=== PATIENT | male | born 1960 | race Caucasian/White ===

== ENCOUNTER 2018-09-27 19:23 | Observation (INO) ==
[2018-09-28] MEDS ORDERED: Potassium Chloride 10 MEQ ER Capsule PO ONE (07:17)
[2018-09-28 07:41] VITALS: BP 115/74; RESP 16; TEMP 97.9; O2SAT 97
[2018-09-28] MEDS ORDERED: Acetaminophen 500 MG Tablet PO PRN (07:58)
[2018-09-28] MEDS ORDERED: Aspirin 325 MG Tablet PO SCH (09:00)
--- NOTE | 2018-09-28 09:35 | P.HPCA ---
History of Present Illness Primary Care Physician: UNKNOWN Chief Complaint: Chest pain History of Present Illness: This is a 58-year-old male that presents to ED with complaint of intermittent discomfort in the center of his chest he describes as a soreness. States it actually is just a little left of the center. Last anywhere from 5 minutes to an hour. Denies associated shortness of breath, nausea, or diaphoresis. States that has been random. Was curious to see if he could be worsened with activity so he went for a bicycle ride yesterday and it did not worsen his symptoms. had a similar episode in approximately March in [facility] and had a treadmill that he states was okay. He also had another episode a little more than a year ago but also had a normal treadmill stress test. he drove here from [place] beginning of August and will be done over 3 months. Denies swelling in his legs. Denies calf pain. History of hypertension, hyperlipidemia, hypothyroidism. Denies diabetes and known CAD. Denies family history of CAD. He is a lifetime non-smoker. Has occasional alcohol. Denies illicit drug use. - Diagnosis (1) Chest pain (2) Hypertension (3) Hyperlipidemia Review of Systems General: Patient denies fevers, chills. HEENT: Patient denies headache, sore throat, difficulty swallowing. Cardiovascular: Has the chest discomfort as mentioned above. Denies sensation of heart beating rapidly or irregularly. No syncope. Respiratory: Denies shortness of breath or inspirational chest discomfort. Denies coughing wheezing or hemoptysis. GI: Patient denies nausea, vomiting, diarrhea, abdominal pain, bloody stools. Musculoskeletal: Patient denies joint pain or edema. Denies calf pain or edema. Neurovascular: Patient denies numbness, tingling, weakness in extremities. Denies headache. Endocrine: Denies polyuria and polydipsia. Hematologic: Denies easy bruising. Skin: Denies rash or itching. PMFSH - History History Provided By: Patient - Medical History Medical History: Medical History (Last Updated 09/27/18 @ 19:38 by Heather Burk RN) Hypercholesterolemia Hypertension Thyroid disease - Surgical History Surgical History: Surgical History (Last Updated 09/27/18 @ 19:38 by Heather Burk RN) Hx of hernia repair Hx of rotator cuff surgery - Tobacco History Smoking Status: Never smoker - Alcohol History How Often Do You Have a Drink Containing Alcohol: Monthly or less - Substance Use History Substance History: No History of Abuse Medications and Allergies Active Medications: Active Medications Acetaminophen (Tylenol) 500 mg PO Q6H PRN PRN Reason: pain scale 1-5 Hydrocodone Bitart/Acetaminophen (Rogers 7.5/325) 1 tab PO Q6H PRN PRN Reason: pain scale 6-10 Aspirin (Aspirin) 325 mg PO DAILY IKER Last Admin: 09/28/18 08:41 Dose: 325 mg Clonidine HCl (Catapres) 0.1 mg PO Q6H PRN PRN Reason: SBP >165 OR DBP > 110 Allergies Allergy/AdvReac Type Severity Reaction Status Date / Time No Known Allergies Allergy Verified 09/27/18 19:33 Home Medications Medication Instructions Recorded Confirmed Type hydrochlorothiazide 12.5 mg PO DAILY 09/27/18 09/27/18 History levothyroxine mg PO DAILY 09/27/18 History lisinopril 5 mg PO DAILY 09/27/18 09/27/18 History rosuvastatin [Crestor] mg PO DAILY 09/27/18 History Exam Vital signs: Vital Signs 09/28/18 07:39 Temperature 97.9 F Pulse Rate 61 Respiratory Rate 16 Blood Pressure 115/74 Pulse Oximetry 97 Narrative: GENERAL: This is a well-nourished, well-developed patient, in no apparent distress. Patient speaks in clear complete sentences. Patient is pleasant. HEENT: Head is atraumatic and normocephalic. Neck is supple without lymphadenopathy and trachea is midline. No JVD or carotid bruits. CARDIOVASCULAR: Regular rate and rhythm without murmurs, gallops, or rubs. RESPIRATORY: Clear to auscultation. Breath sounds equal bilaterally. No wheezes , rales, or rhonchi. Chest wall is nontender. No use of accessory muscles. GASTROINTESTINAL: Abdomen is nontender, nondistended. Abdomen soft. No obvious pulsatile mass or bruit. No CVA tenderness. Strong femoral pulses bilaterally. Normal bowel sounds in all quadrants. MUSCULOSKELETAL: Patient is moving upper and lower extremities freely. No calf tenderness or edema, no Homans sign. Strong pulses in upper and lower extremities. NEUROLOGICAL: Patient is alert and oriented. Cranial nerves 2-12 are grossly intact. No focal deficits and speech is clear. SKIN: No rash and turgor is normal. EKG interpretations - EKG EKG shows: sinus rhythm (Sinus rhythm with right bundle branch block. No significant ST segment depressions or elevations.) Caprini VTE Risk Assessment Caprini VTE Risk Assessment: No/Low Risk (score <= 1) Caprini Risk Assessment Model: Point Value = 1 Point Value = 2 Point Value = 3 Point Value = 5 Age 41-60 Minor surgery BMI > 25 kg/m2 Swollen legs Varicose veins or History of unexplained or recurrent spontaneous Oral contraceptives or hormone replacement Sepsis (< 1 month) Serious lung disease, including pneumonia (< 1 month) Abnormal pulmonary function Acute myocardial infarction Congestive heart failure (< 1 month) History of inflammatory bowel disease Medical patient at bed rest Age 61-74 Arthroscopic surgery Major open surgery (> 45 min) Laparoscopic surgery (> 45 min) Malignancy Confined to bed (> 72 hours) Immobilizing plaster cast Central venous access Age >= 75 History of VTE Family history of VTE Factor V Leiden Prothrombin [id number] Lupus anticoagulant Anticardiolipin antibodies Elevated serum homocysteine Heparin-induced thrombocytopenia Other congenital or acquired thrombophilia Stroke (< 1 month) Elective arthroplasty Hip, pelvis, or leg fracture Acute spinal cord injury (< 1 month) Prophylaxis Regimen: Total Risk Factor Score Risk Level Prophylaxis Regimen 0-1 Low Early ambulation 2 Moderate Order ONE of the following: *Sequential Compression Device (SCD) *Heparin 5000 units SQ BID 3-4 Higher Order ONE of the following medications: *Heparin 5000 units SQ TID *Enoxaparin/Lovenox 40 mg SQ daily (WT < 150 kg, CrCl > 30 mL/min) *Enoxaparin/Lovenox 30 mg SQ daily (WT < 150 kg, CrCl > 10-29 mL/min) *Enoxaparin/Lovenox 30 mg SQ BID (WT < 150 kg, CrCl > 30 mL/min) AND/OR *Sequential Compression Device (SCD) 5 or more Highest Order ONE of the following medications: *Heparin 5000 units SQ TID (Preferred with Epidurals) *Enoxaparin/Lovenox 40 mg SQ daily (WT < 150 kg, CrCl > 30 mL/min) *Enoxaparin/Lovenox 30 mg SQ daily (WT < 150 kg, CrCl > 10-29 mL/min) *Enoxaparin/Lovenox 30 mg SQ BID (WT < 150 kg, CrCl > 30 mL/min) AND *Sequential Compression Device (SCD) Assessment and Plan - Assessment (1) Chest pain Code(s): R07.9 - Chest pain, unspecified Status: Acute (2) Hypertension Code(s): I10 - Essential (primary) hypertension Status: Acute (3) Hyperlipidemia Code(s): E78.5 - Hyperlipidemia, unspecified Status: Acute - Plan * Chest pain: Patient has had serial cardiac enzymes and EKGs for ruling out purposes. He will be seen by Dr. Awan of cardiology in the chest pain center. He will have a nuclear ETT, he will be discharged home if the stress test is nonischemic with instructions to follow-up with PCP and return to ED for interval issues. Radiologist also looked at the CT thoracic and abdominal aorta and main addendum, no evidence of pulmonary embolism. * Hypertension: Continue medication. * Hyperlipidemia: Continue medication. Patient is stable at this time. He is agreeable to this plan.
--- NOTE | 2018-09-28 12:31 | NM ---
EXAM DATE: 09/28/2018 12:24 PM EST AGE/SEX: 58 years / Male INDICATIONS: Angina. . Sub-sternal chest pain with dizziness. CLINICAL DATA: This is the patient's initial encounter. Patient reports that signs and symptoms have been present for 4 - 6 days and indicates a pain score of 5/10. MEDICAL/SURGICAL HISTORY: Hypercholesterolemia. Hypertension. Inguinal hernia repair. COMPARISON: No prior exams available for comparison. DOSE: 8.8 mCi Tc 99m Myoview at rest 26.9 mCi [id number] at stress REST HEART RATE: 84 BPM TARGET HEART RATE: 138 BPM MAX HEART RATE: 141 BPM REST BLOOD PRESSURE: 130/78 mmHg MAX BLOOD PRESSURE: 160/82 mmHg EJECTION FRACTION: 65% % TECHNIQUE: The patient underwent upright treadmill exercise in the chest pain center. Continuous EC G tracing was monitored during stress. Gated SPECT imaging was performed after stress, and conventio nal SPECT imaging was performed at rest. The examination was performed on a SPECT/CT scanner, both a ttenuation-corrected and non-corrected datasets were reviewed. FINDINGS: Distribution: The maximum perfused segment at stress is in the wall. Perfusion: No significant reversible perfusion defect. There is a matched defect along the inferior wall. Gated Study: There are intact wall motion and wall thickening without hypokinetic or dyskinetic segme nts. The ejection fraction is calculated at 65%%. RISK CATEGORY: Intermediate (1-3 % Annual Mortality Rate) CONCLUSION: 1. Normal ejection fraction. 2. Matched defect along the inferior wall suggests prior infarct. Electronically signed by: Jac Glasgow MD Board Certified Radiologist 09/28/2018 12:30 PM EST
[2018-09-28 12:46] VITALS: PULSE 70
--- NOTE | 2018-10-01 07:58 | TR ---
Date Performed: 09/28/2018 Time Performed: 11:20:53 DOCTOR: Jairo Shultz DRUG LIST: CLINICAL HISTORY: REASON FOR TEST: Chest pain REASON FOR ENDING: OBSERVATION: CONCLUSION: NUC ETT. NO CP OR SOB.Maximum KI=252 % Max HR Achieved=88.0% Maximum HK=692/82 Total Exercise Time=8:30 COMMENTS: Patient exercised using the Kevin protocol. RBBB present throughout test. No electroc ardiographic changes were seen to suggest ischemia. Hemodynamic response to exercise was normal. No s ignificant arrhythmia was present.
== END 2018-09-28 13:58 | disposition home or self-care (01) ==
LOC: NEPFCDU 09-28 06:15 → NEDDLT 09-28 06:15
PROVIDERS: ADMIT Internal Medicine Cardiovascular Disease; ATTEND Internal Medicine Cardiovascular Disease
CPT/HCPCS: 71010; 71045; 71275; 74175; 78452; 80053; 82550; 82552; 83520; 83880; 84484; 85025; 85379; 93005; 93017; 99285; A9502; G0378; Q9967; Q9969